=== PATIENT | female | born 1970 | race Caucasian/White ===

== ENCOUNTER → 2016-06-28 | Outpatient (CLI) | payer BC ==
[~2016-06-28] MED LIST: IBUP-1050 PO; IRON PO; MULT-506 PO; OXYC-57 PO
--- NOTE | 2016-06-28 10:42 | DIAGNOSTIC IMAGING REPORT ---
ULTRASOUND LEFT VENOUS DOPP LOWER EXT UNILAT CLINICAL HISTORY: Progressive left popliteal pain. COMPARISON STUDY: No previous studies for comparison. FINDINGS: Real-time and color flow Doppler imaging were performed. Flow was seen within the femoral, popliteal and calf veins with no intraluminal thrombus demonstrated. The saphenous vein is patent. No popliteal cyst is visualized. IMPRESSION: No evidence of left lower extremity DVT. Electronically signed by: Mike Frias M.D. 06/28/2016 10:41 AM Dictated Date/Time: 06/28/2016 10:40 AM
== END | disposition home or self-care (01) ==
LOC: C.ULTR 09:54
PROVIDERS: ATTEND Family Medicine
DX: M79.609 Pain in unspecified limb (principal)

== ENCOUNTER → 2016-08-01 | Outpatient (CLI) | payer BC | END | disposition home or self-care (01) | LOC: C.PAPS 10:43 | PROVIDERS: ATTEND Obstetrics & Gynecology | DX: Z01.419 Encounter for gynecological examination (general) (routine) without abnormal findings (principal) ==

== ENCOUNTER → 2016-09-02 | Outpatient (CLI) | payer BC | END | disposition home or self-care (01) | LOC: C.PATHSPEC 14:51 | PROVIDERS: ATTEND Obstetrics & Gynecology | DX: N92.0 Excessive and frequent menstruation with regular cycle (principal) ==

== ENCOUNTER → 2016-09-08 | Outpatient (CLI) | payer BC ==
--- NOTE | 2016-09-08 16:06 | MAMMOGRAPHY REPORT ---
BILATERAL DIGITAL SCREENING MAMMOGRAM TOMOSYNTHESIS WITH CAD: 09/08/2016 CLINICAL HISTORY: Routine screening. Patient has no complaints. TECHNIQUE: Breast tomosynthesis in addition to standard 2D mammography was performed. Current study was also evaluated with a Computer Aided Detection (CAD) system. COMPARISON: Comparison is made to exams dated: 09/07/2015 mammogram, 07/14/2014 mammogram, 07/08/2013 ma mmogram, 04/23/2012 mammogram, 04/30/2012 ultrasound, and 04/30/2012 mammogram - [facility]. BREAST COMPOSITION: There are scattered areas of fibroglandular density in both breasts. FINDINGS: There are stable lymph nodes in the upper outer posterior right breast. No suspicious mas s, architectural distortion or cluster of microcalcifications is seen. IMPRESSION: ACR BI-RADS CATEGORY 1: NEGATIVE There is no mammographic evidence of malignancy. A 1 year screening mammogram is recommended. The p atient will receive written notification of the results. Approximately 10% of breast cancers are not detected with mammography. A negative mammographic repor t should not delay biopsy if a clinically suggestive mass is present. Mame Duque M.D. ay/:09/08/2016 15:33:43 Offender Job Retention Specialist: Georgina CONNOLLY(Brenda)(Vinnie), [facility] letter sent: Normal 1/2 BI-RADS Code: ACR BI-RADS Category 1: Negative
== END | disposition home or self-care (01) ==
LOC: C.MAMM 11:47
PROVIDERS: ATTEND Physician Assistant
DX: Z12.31 Encounter for screening mammogram for malignant neoplasm of breast (principal)

== ENCOUNTER 2016-09-15 05:22 | Observation (INO) | payer BC ==
[2016-09-02 11:54] VITALS: BMI 35.0
--- NOTE | 2016-09-02 12:17 | PAT Medication Instructions ---
Service Date September 02, 2016. Current Home Medication List Ibuprofen (Advil), 400 MG PO PRN Multivitamin (Multivitamin), 1 TAB PO QAM [Iron], 65 MG PO QAM Medication Instructions For Your Scheduled Surgery - Hold the following medications the morning of surgery: Multivitamin (Multivitamin), 1 TAB PO QAM Iron 65 MG PO QAM Ibuprofen (Advil), 400 MG PO PRN (not told to stop by surgeon- use in moderation one week prior to surgery- patient usually takes only once a week) If you have any questions please call us at [phone] or [phone] ( [place]) or [phone]
[2016-09-02 13:09] LABS: BASO % 0.5 %; BASO ABS # 0.03 K/uL (0-0.2); COMPLETE YES; EOS % 1.7 %; HEMATOCRIT 40.8 % (37-47); IG% 0.2 %; LYMPH ABS # 3.07 K/uL (1.2-3.4); MEAN CELL VOLUME 87.7 fL (80-100); MEAN CORPUSCULAR HGB CONC 33.1 g/dl (32-36); MEAN PLATELET VOLUME 9.2 fL (7.4-10.4); MONO % 6.7 %; NEUT % 42.9 %; PLATELET COUNT 344 K/uL (130-400); RED BLOOD COUNT 4.65 M/uL (4.2-5.4); WHITE BLOOD COUNT 6.39 K/uL (4.8-10.8)
[2016-09-02 15:05] LABS: BUN/CREATININE RATIO 15.1 (10-20); CREATININE 0.78 mg/dl (0.60-1.20); POTASSIUM 3.7 mmol/L (3.5-5.1)
[2016-09-15] VITALS (8 sets, daily range): BP systolic 101–140; BP diastolic 56–73; PULSE 72–88; TEMP 36.5–36.9; O2SAT 94–99; Ht 157.5 cm; Wt 87.9 kg
[~2016-09-15] VITALS: Ht 157.5 cm; Wt 87.9 kg
[~2016-09-15 05:22] MED LIST changes: -OXYC-57 PO
[2016-09-15] MEDS ORDERED: LACTATED RINGER'S 1000ML 1,000 ML IV SCH ×2 (06:00)
[2016-09-15] MEDS ORDERED: CEFAZOLIN 2000 MG/60 ML D5W 50 ML IV SCH (06:00)
[2016-09-15] MEDS ORDERED: BUPIVACAINE 0.5 % 5 MG/1 ML MPF 30ML VIAL ONE (06:59)
[2016-09-15] MEDS ORDERED: METHYLENE BLUE 0.5% 10 ML VIAL ONE (07:00)
[2016-09-15] MEDS ORDERED: ONDANSETRON INJ 2 MG/ML 2 ML VIAL ONE ×2 (07:03→08:33)
[2016-09-15] MEDS ORDERED: GLYCOPYRROLATE INJ 0.2 MG/ML VIAL ONE ×2 (07:03→08:33)
[2016-09-15] MEDS ORDERED: LIDOCAINE HCL 2% 2 ML VIAL (20MG/ML) ONE (07:03)
[2016-09-15] MEDS ORDERED: NEOSTIGMINE METHYLSULFATE 5 MG/5 ML SYR ONE (07:03)
[2016-09-15] MEDS ORDERED: DEXAMETHASONE SOD INJ 4 MG/ML VIAL ONE (07:03)
[2016-09-15] MEDS ORDERED: FENTANYL CITRATE INJ 50 MCG/1 ML 2 ML VIAL ONE (07:03)
[2016-09-15] MEDS ORDERED: PROPOFOL IV EMULSION 10 MG/ML 20 ML VIAL IV ONE (07:03)
[2016-09-15] MEDS ORDERED: MIDAZOLAM HCL 1 MG/ML 2ML VIAL ONE (07:03)
[2016-09-15] MEDS ORDERED: ROCURONIUM BROMIDE 10 MG/ML 5 ML VIAL ONE ×2 (07:03→08:33)
--- NOTE | 2016-09-15 07:14 | History & Physical Bridge Note ---
H&P Re-Evaluation Bridge Note: I have examined the patient, reviewed the History & Physical and in the interval since the performance of the History & Physical I have noted the following changes of clinical significance: No changes noted
[2016-09-15] MEDS ORDERED: ONDANSETRON INJ 2 MG/ML 2 ML VIAL IV PRN ×2 (08:00→11:00)
[2016-09-15] MEDS ORDERED: EpHEDrine SULFATE INJ 50 MG/ML AMP IV PRN (08:00)
[2016-09-15] MEDS ORDERED: ATROPINE SULFATE 0.1 MG/ML 5ML SYR IV PRN (08:00)
[2016-09-15] MEDS ORDERED: HYDROmorphone INJ 2 MG/ML SYR/VIAL ONE (08:33)
[2016-09-15] MEDS ORDERED: PHENYLEPHRINE 100MCG/ML 5ML SYR ONE (09:59)
[2016-09-15] MEDS ORDERED: TISSEEL FIBRIN SEALANT 4ML TOP ONE (09:59)
--- NOTE | 2016-09-15 10:56 | [facility] Post Operative Brief Note ---
Immediate Operative Summary Operative Date September 15, 2016. Pre-Operative Diagnosis Dysfunctional uterine bleeding Post-Operative Diagnosis Same as preop Procedure(s) Performed Robotic-assisted laparoscopic hysterectomy, bilateral salpingectomy, lysis of adhesions, cystoscopy Surgeon Dr. Whitman Intermediate Teacher Surgeon(s) Dr. Peralta Estimated Blood Loss 75 cc Findings Normal appearing tubes, ovaries. Enlarged uterus. Adhesions peritoneum to omentum. Specimens A: uterus, cervix, bilateral fallopian tubes Drains cortez, clear blue Anesthesia general Complication(s) None Disposition Recovery Room / PACU
[2016-09-15] MEDS: FENTANYL CITRATE INJ 50 MCG/1 ML 2 ML VIAL IV PRN ×2 (10:58→11:10)
[2016-09-15] MEDS ORDERED: OXYCODONE/ACETAMINOPHEN 5-325 TAB PO PRN (11:00)
[2016-09-15] MEDS ORDERED: IBUPROFEN 600 MG TAB PO PRN (11:00)
[2016-09-15] MEDS ORDERED: PROMETHAZINE HCL INJ 12.5 MG in SODIUM CHLORIDE 0.9% 50ML 50 ML IV PRN (11:00)
[2016-09-15] MEDS ORDERED: MAGNESIUM HYDROXIDE SUSP 30 ML UDC PO PRN (11:00)
[2016-09-15] MEDS ORDERED: SIMETHICONE 80 MG CHEW PO PRN (11:00)
[2016-09-15] MEDS: OXYCODONE/ACETAMINOPHEN 5-325 TAB PO PRN ×2 (13:10→18:45)
[2016-09-15] MEDS ORDERED: OXYC-57 PO (13:44)
--- NOTE | 2016-09-15 13:45 | Discharge Instructions ---
Discharge Instructions Date of Service September 15, 2016. Admission Reason for Admission: Menorrhagia Discharge Discharge Diagnosis / Problem: s/p hysterectomy Discharge Goals Goal(s): Routine recovery after surgery Activity Recommendations Activity Limitations: per Instructions/Follow-up section . Instructions / Follow-Up Instructions / Follow-Up POST OPERATIVE: BOWEL FUNCTION/MEDICATIONS: 1. Constipation pain and discomfort are the most common complaints 5-7 days after surgery. Points 2-6 address the things that can help. 2. Chewing gum can help stimulate the gut and help improve digestion and motility. 3. Milk of Magnesia 1-2 times per day until return of bowel function. 4. Colace is a stool softener that helps. Taking this 2-3 times per day until bowel function returns to normal is highly recommended. 5. Dulcolax is a laxative that may be used if several days have passed without a bowel movement. Alternatively Miralax may be used daily instead. 6. Drink plenty of fluids as this will also reduce constipation. 7. Narcotic pain medications will be prescribed by your physician. They are safe to use and we encourage you to use them. If you are not allergic, ibuprofen will also be prescribed. Many patients will be able to transition off of the narcotic medications to ibuprofen by postoperative day 3. ACTIVITY RECOMMENDATIONS: 1. Get plenty of rest and listen to your body. If you are tired, take a nap. 2. You may shower, but do not take a tub bath until you see your doctor at the 2 week post operative visit. 3. Absolutely NO intercourse and nothing in the vagina until you are examined by your doctor at the 6 week visit. At that visit it will be determined when such activities can be resumed. This can range from 6-12 weeks after your surgery depending on healing time. 4. The main physical activity in the first week should be walking. By the second week you can slowly increase activity. There are no limits on walking up and down stairs. 5. Do not lift more than 5-10 lbs for 4 weeks. Remember the "one-handed rule", i.e. if you can lift something with only one hand it's likely okay. 6. Minimize printing press operator apprentice like vacuuming and exercising for 4 weeks. "Overdoing it" can lead to incisions not healing, pain and vaginal bleeding , so again, listen to your body. 7. Driving can be resumed when you feel able. Do not drive within 24 hours of taking a narcotic medication. EXPECTATIONS: 1. Vaginal spotting, bleeding and discharge are common after surgery. There may even be an odor to the discharge which is often related to sutures used in the vagina. If you experience heavy vaginal bleeding, call the office number day or night [phone]. 2. Bladder discomfort is common after surgery from the catheter. This usually resolves in 1-2 weeks. 3. By the end of the 3rd or 4th week you should be feeling much better. It may take up to 6 weeks for your energy levels to return to normal. 4. Narcotic medications have side effects such as: dizziness, headache, nausea and/or vomiting. If you suspect your pain medication is causing problems, call our office and we may be able to prescribe an alternate medication. 5. The skin incisions are often covered with a liquid bandage. This will gradually peel off over time. CALL THE OFFICE IF YOU HAVE ANY OF THE FOLLOWIN. Temperature of 101 degrees or higher. 2. Severe abdominal or pelvic pain not relieved by pain medication. 3. Persistent nausea or vomiting. 4. Increased pain with urination or difficulty urinating. 5. Bright red bleeding that soaks more than 1 pad per hour. CONTACT PHONE NUMBERS: Main Office: [phone] Surgical Nurse: [phone] extension [phone] Avoid all tobacco products. If you need help to stop smoking, call [place]'s FREE QUITLINE at . This is a free call. Current Hospital Diet Patient's current hospital diet: Discharge Diet Recommended Diet: Regular Diet Procedures Procedures Performed: Robotic-assisted laparoscopic hysterectomy, bilateral salpingectomy, lysis of adhesions, cystoscopy Pending Studies Studies pending at discharge: no Medical Emergencies . Who to Call and When: Medical Emergencies: If at any time you feel your situation is an emergency, please call 911 immediately. . Non-Emergent Contact Non-Emergency issues call your: Primary Care Provider, Machinist Job Setter . . "Provider Documentation" section prepared by Margot Whitman. . VTE Core Measure Inpt VTE Proph given/why not?: Treatment not indicated
[2016-09-15] MEDS ORDERED: IV FLUIDS COMPLETED PRN (14:00)
--- NOTE | 2016-09-15 15:09 | OPERATIVE REPORT ---
DATE OF OPERATION: 09/15/2016 PREOPERATIVE DIAGNOSIS: Dysfunctional uterine bleeding. POSTOPERATIVE DIAGNOSIS: Same. PROCEDURES PERFORMED: 1. Robotic-assisted laparoscopic hysterectomy. 2. Bilateral salpingectomy. 3. Lysis of adhesions. 4. Cystoscopy. SURGEON: Dr. Margot Whitman. COVERAGE SPECIALIST RN: Dr. Peralta. ESTIMATED BLOOD LOSS: 75 mL. FINDINGS: Normal appearing tubes and ovaries, enlarged uterus, and adhesions peritoneum to omentum. SPECIMENS: Uterus and cervix and bilateral fallopian tubes. DRAINS: Alexis clear blue due to methylene blue administration. ANESTHESIA: General. COMPLICATIONS: None. DISPOSITION: Stable and good to recovery room. INDICATIONS FOR SURGERY: The patient is a 46-year-old G3, P3 with a longstanding history of heavy menses. D\T\C hysteroscopy showed benign pathology. The patient has attempted hormonal treatment methods and this did not help. She is not agreeable to ablation given that her mother of uterine cancer at age 45 and the patient is reluctant to try this option. The bleeding is interfering with her daily activities. Bilateral ureters were visualized and peristalsing at the beginning of the case. DESCRIPTION OF PROCEDURE: The patient was seen in the preoperative holding area, where risks, benefits, and alternatives to surgery were reviewed. She elected to proceed with surgery. The patient was then taken to the operating room, where general anesthesia was introduced. She was placed in the dorsal lithotomy position with feet in Yellofin stirrups and prepared and draped in the usual sterile fashion. A timeout was called and confirmed. A Alexis catheter was placed with clear yellow urine. The weighted speculum was placed in the vagina. Cervix was visualized and a large nabothian cyst noted on the anterior lip of the cervix that had previously been noted in the office. This was punctured with a hemostat and drained. Stay sutures were placed at 3 and 9 o'clock on the cervix. The uterus was sounded and the VCare manipulator was placed without difficulty. This was tied in place with the stay sutures and gloves and gown were changed and attention was then turned to the abdomen, where using the open Amirah technique, the supraumbilical incision was created with a scalpel and carried through to the inner layer of peritoneum. The trocar was placed. The camera was placed to ensure intracavitary placement and gas was turned on high flow. The patient was placed in steep Trendelenburg position and bowel was swept out of the way by gravity. Additional incisions were made for robotic arms #1, #2, and #3 as well as an press operator assistant port. These were all placed under direct visualization. The robot was then docked in standard fashion over the patient's right leg and all instruments were inserted without difficulty. Attention was first turned to the omental peritoneal adhesions and these were taken down with monopolar scissors and excellent hemostasis was observed. Attention was then turned to the pelvis, where first the left salpingectomy was performed. The left fallopian tube was grasped and using monopolar scissors, the mesosalpinx was incised. Excellent hemostasis was noted throughout. This tube was then removed through the press operator assistant port. The uteroovarian ligament was then coagulated and transected as well as the round ligament and the broad ligament was transected down to the level of the bladder flap. The anterior leaf of the broad ligament was then dissected to create a bladder flap. In a similar fashion, the right fallopian tube was removed and the right uteroovarian ligament was coagulated and transected as was the right round ligament and the right broad ligament was skeletonized as well as the bladder flap was continued across the anterior aspect of the uterus. The bladder was carefully dissected down beyond the location of the vaginal cuff. The uterine vessels were coagulated on bilateral sides and transected. Then, the vaginal cuff was entered from the anterior aspect of the uterus with monopolar scissors and this incision was carried around in a circumferential fashion to transect the uterus from the vaginal cuff. There was left arterial bleeding at this time and multiple attempts were made using cautery to coagulate this vessel. It was eventually grasped with the [place] PK dissector and a plastic clip was applied and this achieved excellent hemostasis. The uterus was then delivered through the vagina. The cuff was irrigated. Excellent hemostasis was observed. The vaginal cuff was reapproximated using 0 V-Loc suture in a running stitch. Again, the pelvis was irrigated and excellent hemostasis was noted. Tisseel was used along the vaginal cuff and all raw edges. The cystoscopy was then performed and the bladder appeared atraumatic. Dome of the bladder was visualized and appeared normal. Bilateral urine jets were noted with the aid of methylene blue. A low pressure test was then performed to ensure excellent hemostasis. All instruments were removed from the abdomen and pelvis and the robot was undocked. All trocar sites were reapproximated first with the fascial incision and the infraumbilical incision was reapproximated using 0 Vicryl. This was followed by reapproximation of the press operator assistant port fascial incision followed by 4-0 Vicryl in a subcuticular fashion to reapproximate the skin edges. Dermabond was applied. The patient tolerated the procedure well and was taken to recovery room in stable and good condition. I attest to the content of the Intraoperative Record and any orders documented therein. Any exceptions are noted below. RAMOND
--- NOTE | 2016-09-15 16:34 | Anesthesiology Progress Note ---
Anesthesia Post Op Note Date & Time September 15, 2016 at 16:34 Vital Signs Pain Intensity: 4 Vital Signs Past 12 Hours Date Time Temp Pulse Resp B/P Pulse Ox O2 Delivery O2 Flow Rate FiO2 09/15/16 15:30 94 Room Air 09/15/16 15:30 36.9 84 18 101/56 94 Room Air 09/15/16 14:30 36.6 88 20 117/66 99 Room Air 09/15/16 13:35 36.6 72 20 106/61 99 Nasal Cannula 2.0 09/15/16 12:35 36.6 76 20 106/58 97 Nasal Cannula 4.0 09/15/16 12:05 36.5 72 16 107/60 97 Nasal Cannula 4.0 09/15/16 11:35 36.8 80 16 108/60 97 Nasal Cannula 4.0 09/15/16 11:35 97 Nasal Cannula 4.0 09/15/16 11:35 97 Nasal Cannula 4.0 09/15/16 11:23 65 16 09/15/16 11:23 66 16 95 09/15/16 11:21 115/59 09/15/16 11:19 36.6 09/15/16 11:18 70 16 94 09/15/16 11:18 70 16 09/15/16 11:16 99/61 09/15/16 11:13 63 13 94 09/15/16 11:13 63 13 09/15/16 11:12 64 16 09/15/16 11:12 64 16 94 09/15/16 11:11 110/60 09/15/16 11:07 67 14 09/15/16 11:07 69 14 93 09/15/16 11:06 94/64 09/15/16 11:02 65 16 94 09/15/16 11:02 65 16 09/15/16 11:01 99/60 09/15/16 11:00 59 14 09/15/16 11:00 58 14 93 09/15/16 10:56 102/61 09/15/16 10:55 69 16 94 09/15/16 10:55 70 16 09/15/16 10:51 102/61 09/15/16 10:50 62 15 94 09/15/16 10:50 62 15 09/15/16 10:46 108/63 09/15/16 10:45 77 20 09/15/16 10:45 77 20 90 09/15/16 10:41 123/81 09/15/16 10:40 70 17 09/15/16 10:40 69 17 95 09/15/16 10:36 101/66 09/15/16 10:35 74 13 09/15/16 10:35 74 13 96 09/15/16 10:30 79 22 09/15/16 10:30 36.6 69 16 96/60 95 Mask 10 09/15/16 10:30 85 22 96/60 09/15/16 05:35 36.7 74 16 140/73 97 Room Air Notes Mental Status: alert / awake / arousable, participated in evaluation Pt Amnestic to Procedure: Yes Nausea / Vomiting: adequately controlled Pain: adequately controlled Airway Patency, RR, SpO2: stable & adequate BP & HR: stable & adequate Hydration State: stable & adequate Anesthetic Complications: no major complications apparent
[2016-09-15] MEDS ORDERED: DOCUSATE SODIUM 100 MG CAP PO SCH (21:00)
--- NOTE | 2016-09-25 08:35 | DISCHARGE SUMMARY ---
PREOPERATIVE DIAGNOSIS: Dysfunctional uterine bleeding. POSTOPERATIVE DIAGNOSES: Same. PROCEDURES PERFORMED: Robotic assisted laparoscopic hysterectomy, bilateral salpingectomy, lysis of adhesions and cystoscopy. COURSE OF STAY: The patient was admitted following the above noted procedures and was discharged to home the same day in stable and good condition. MEDICATIONS: Percocet and Motrin. FOLLOWUP: 2 weeks in the office. CONDITION ON DISCHARGE: Stable and good. INFECTIONS: None. DIET: Regular. ACTIVITY: Pelvic rest, no heavy lifting.
== END 2016-09-15 18:50 | disposition home or self-care (01) ==
LOC: C.ACU 05:22 → C.MS4N 05:33
PROVIDERS: ADMIT Obstetrics & Gynecology; ATTEND Obstetrics & Gynecology
DX: N93.8 Other specified abnormal uterine and vaginal bleeding (principal); Z82.49 Family history of ischemic heart disease and other diseases of the circulatory system; Z80.49 Family history of malignant neoplasm of other genital organs; Z80.0 Family history of malignant neoplasm of digestive organs
CPT/HCPCS: 58571; S2900

== ENCOUNTER 2017-08-13 10:10 | Emergency (ER) | payer BC ==
[~2017-08-13] VITALS: Ht 157.5 cm; Wt 75.8 kg
[~2017-08-13 10:10] MED LIST changes: +OXYC-57 PO
[2017-08-13 10:12] VITALS: TEMP 36.5; Ht 157.5 cm; Wt 75.8 kg
[2017-08-13] MEDS ORDERED: MAGNESIUM SULFATE 1GM / D5W 1 GM BAG IV STA (10:48)
[2017-08-13] MEDS ORDERED: DiphenhydrAMINE HCL 50 MG/ML VIAL IV STA (10:48)
[2017-08-13] MEDS ORDERED: KETOROLAC TROMETHAMINE 30 MG/ML VIAL IV STA (10:48)
[2017-08-13] MEDS ORDERED: PROCHLORPERAZINE 5 MG/ML 2 ML VIAL IV STA (10:48)
[2017-08-13] MEDS ORDERED: SODIUM CHLORIDE 0.9% 1000ML 1,000 ML IV STA (10:48)
[2017-08-13] MEDS ORDERED: FAMOTIDINE 20MG/5ML IV PUSH IV STA (10:53)
[2017-08-13] MEDS ORDERED: PRED10TA PO (11:02)
[2017-08-13] MEDS ORDERED: GLC/500 PO (11:02)
[2017-08-13] MEDS ORDERED: MULT-506 PO (11:02)
--- NOTE | 2017-08-13 11:15 | EMERGENCY ROOM VISIT NOTE ---
History Report prepared by Alva: Cait Nieto Under the Supervision of: Dr. Bryan Ayala M.D. First contact with patient: 10:32 Chief Complaint: HEADACHE Stated Complaint: SEVERE HEAD PAIN, RASH, NAUSEA History of Present Illness The patient is a 46 year old female who presents to the Emergency Room with complaints of a worsening headache beginning last night. The patient states that her headache began gradually around 8pm and worsened throughout the night and into this morning. She did not sleep well due to her symptoms. She reports a headache on the left side of her head and rates her current pain as a 9/10 in severity. She is also complaining of neck stiffness. The patient has had a diffuse rash on her upper body for the past 3 weeks and has been following up with her PCP. Yesterday she started taking prednisone for this rash. She took 50mg of prednisone yesterday and 50mg today. The patient lives in the [facility] and has dogs at home but denies any recent tick bites. Source of History: patient Onset: last night Position: head Symptom Intensity: 9/10 Timing: worsening Modifying Factors (Worsening): other (time) Associated Symptoms: + neck pain, + rash Review of Systems See HPI for pertinent positives & negatives. A total of 10 systems reviewed and were otherwise negative. Past Medical & Surgical Medical Problems: (1) Heavy menses Family History Cancer Social History Smoking Status: Never Smoker Marital Status: Housing Status: lives with family Occupation Status: employed Current/Historical Medications Scheduled Metformin Hcl (Glucophage), 500 MG PO DAILY Multivitamin (Multivitamin), 1 TAB PO DAILY Prednisone Tab (Prednisone), 10 MG PO UD Ranitidine Hcl (Zantac), 150 MG PO BID Allergies Coded Allergies: Codeine (Verified Allergy, Severe, CHEST TIGHTNESS--USES PERCOCET AT HOME , 08/13/17) Morphine (Verified Allergy, Unknown, CHEST TIGHTNESS--USES PERCOCET AT HOME, 08/13/17) Physical Exam Vital Signs Date Time Temp Pulse Resp B/P (MAP) Pulse Ox O2 Delivery O2 Flow Rate FiO2 08/13/17 12:22 76 18 110/78 97 08/13/17 11:53 78 18 116/76 95 Room Air 08/13/17 11:11 71 08/13/17 11:08 72 18 126/77 99 Room Air 08/13/17 10:12 36.5 70 17 142/84 97 Room Air Physical Exam GENERAL: Awake, alert, well-appearing, in no acute distress HENT: Normocephalic, atraumatic. Oropharynx unremarkable. EYES: Normal conjunctiva. Sclera non-icteric. NECK: Supple. No nuchal rigidity. FROM. No JVD. No evidence of meningitis or encephalitis on exam. RESPIRATORY: Clear to auscultation. CARDIAC: Regular rate, normal rhythm. Extremities warm and well perfused. Pulses equal. ABDOMEN: Soft, non-distended. No tenderness to palpation. No rebound or guarding. No masses. RECTAL: Deferred. MUSCULOSKELETAL: Chest examination reveals no tenderness. The back is symmetrical on inspection without obvious abnormality. There is no CVA tenderness to palpation. No joint edema. LOWER EXTREMITIES: Calves are equal size bilaterally and non-tender. No edema. No discoloration. NEURO: Normal sensorium. No sensory or motor deficits noted. SKIN: Very fine urticarial-like rash to the top of her trunk. Medical Decision & Procedures ER Provider Diagnostic Interpretation: Radiology results as stated below per my review and radiologist interpretation: CT SCAN OF THE BRAIN WITHOUT IV CONTRAST CLINICAL HISTORY: Headache. COMPARISON STUDY: No priors. TECHNIQUE: Unenhanced axial CT scan of the brain is performed from the vertex to the skull base. A dose lowering technique was utilized adhering to the principles of ALARA. CT DOSE: 537.48 mGy.cm FINDINGS: Brain parenchyma: The brain parenchyma is normal in appearance. There is no hemorrhage, mass effect, or evidence of acute territorial ischemia by CT criteria. Madrigal-white matter is preserved. No extra-axial fluid collection is seen. Ventricles, sulci, cisterns: Normal in configuration. Intracranial vasculature: The visualized intracranial vasculature at the skull base is normal in appearance. Calvarium: Unremarkable. Sinuses and mastoids: The visualized paranasal sinuses are clear. The mastoid air cells are well pneumatized. Orbits: The bony orbits are grossly intact. IMPRESSION: No acute intracranial abnormality. Electronically signed by: Igor Martinez M.D. 08/13/2017 11:30 AM Dictated Date/Time: 08/13/2017 11:28 AM Laboratory Results 08/13/17 10:55 Red Blood Count 4.71, Mean Corpuscular Volume 88.5, Mean Corpuscular Hemoglobin 30.6, Mean Corpuscular Hemoglobin Concent 34.5, Mean Platelet Volume 9.3, Neutrophils (%) (Auto) 74.0, Lymphocytes (%) (Auto) 19.7, Monocytes (%) (Auto) 5.2, Eosinophils (%) (Auto) 0.6, Basophils (%) (Auto) 0.2, Neutrophils # (Auto) 8.42, Lymphocytes # (Auto) 2.24, Monocytes # (Auto) 0.59, Eosinophils # (Auto) 0.07, Basophils # (Auto) 0.02 08/13/17 10:55 Test 08/13/17 10:55 08/13/17 11:10 White Blood Count 11.37 K/uL (4.8-10.8) Red Blood Count 4.71 M/uL (4.2-5.4) Hemoglobin 14.4 g/dL (12.0-16.0) Hematocrit 41.7 % (37-47) Mean Corpuscular Volume 88.5 fL (80-100) Mean Corpuscular Hemoglobin 30.6 pg (25-34) Mean Corpuscular Hemoglobin Concent 34.5 g/dl (32-36) Platelet Count 284 K/uL (130-400) Mean Platelet Volume 9.3 fL (7.4-10.4) Neutrophils (%) (Auto) 74.0 % Lymphocytes (%) (Auto) 19.7 % Monocytes (%) (Auto) 5.2 % Eosinophils (%) (Auto) 0.6 % Basophils (%) (Auto) 0.2 % Neutrophils # (Auto) 8.42 K/uL (1.4-6.5) Lymphocytes # (Auto) 2.24 K/uL (1.2-3.4) Monocytes # (Auto) 0.59 K/uL (0.11-0.59) Eosinophils # (Auto) 0.07 K/uL (0-0.5) Basophils # (Auto) 0.02 K/uL (0-0.2) RDW Standard Deviation 38.5 fL (36.4-46.3) RDW Coefficient of Variation 11.9 % (11.5-14.5) Immature Granulocyte % (Auto) 0.3 % Immature Granulocyte # (Auto) 0.03 K/uL (0.00-0.02) Anion Gap 6.0 mmol/L (3-11) Est Creatinine Clear Calc Drug Dose 96.8 ml/min Estimated GFR () 121.3 Estimated GFR (Non- 104.6 BUN/Creatinine Ratio 18.1 (10-20) Calcium Level 9.0 mg/dl (8.5-10.1) Total Bilirubin 0.4 mg/dl (0.2-1) Direct Bilirubin 0.1 mg/dl (0-0.2) Aspartate Amino Transf (AST/SGOT) 15 U/L (15-37) Alanine Aminotransferase (ALT/SGPT) 25 U/L (12-78) Alkaline Phosphatase 77 U/L (45-117) Total Protein 7.5 gm/dl (6.4-8.2) Albumin 3.8 gm/dl (3.4-5.0) Lipase 113 U/L (73-393) Lyme Disease IgG Antibody NEG (NEG) Lyme Disease IgM Antibody NEG (NEG) Urine Color DK YELLOW Urine Appearance CLOUDY (CLEAR) Urine pH 5.0 (4.5-7.5) Urine Specific [place] 1.035 (1.000-1.030) Urine Protein NEG (NEG) Urine Glucose (UA) NEG (NEG) Urine Ketones TRACE (NEG) Urine Occult Blood NEG (NEG) Urine Nitrite NEG (NEG) Urine Bilirubin NEG (NEG) Urine Urobilinogen NEG (NEG) Urine Leukocyte Esterase NEG (NEG) Urine WBC (Auto) 1-5 /hpf (0-5) Urine RBC (Auto) 0-4 /hpf (0-4) Urine Hyaline Casts (Auto) 1-5 /lpf (0-5) Urine Epithelial Cells (Auto) >30 /lpf (0-5) Urine Bacteria (Auto) NEG (NEG) Urine Crystals CALCIUM OXALATE (NONE Labs reviewed by ED physician. Medications Administered Medications (Trade) Dose Ordered Sig/Andrei Route Start Time Stop Time Status Last Admin Dose Admin Sodium Chloride 1,000 ml @ 999 mls/hr Q1H1M STAT IV 08/13/17 10:48 08/13/17 11:48 DC 08/13/17 11:03 999 MLS/HR Ketorolac Tromethamine (Toradol Inj) 30 mg NOW STAT IV 08/13/17 10:48 08/13/17 10:51 DC 08/13/17 11:03 30 MG Prochlorperazine Edisylate (Compazine Inj) 10 mg NOW STAT IV 08/13/17 10:48 08/13/17 10:51 DC 08/13/17 11:04 10 MG Diphenhydramine HCl (Benadryl Inj) 50 mg NOW STAT IV 08/13/17 10:48 08/13/17 10:51 DC 08/13/17 11:04 50 MG Magnesium Sulfate (Magnesium Sulfate) 1 gm NOW STAT IV 08/13/17 10:48 08/13/17 10:51 DC 08/13/17 11:03 1 GM Famotidine (Pepcid 20mg Iv Push) 20 mg ONE STAT IV 08/13/17 10:53 08/13/17 10:54 DC 08/13/17 11:04 20 MG ED Course 1040: Past medical records reviewed. The patient was evaluated in room B2. A complete history and physical examination was performed. 1048: Magnesium Sulfate 1 gm IV, Benadryl 50 mg IV, Compazine 10 mg IV, Toradol 30 mg IV, NSS 1000 ml @ 999 mls/hr IV 1053: Famotidine 20 mg IV 1139: I offered a lumbar puncture at this time but the patient declined. 1207: I reassessed the patient at this time. She is feeling better and resting comfortably. I discussed the results and treatment plan with the patient. I answered all pertaining questions that she had. She expressed understanding and verbalized agreement. The patient will be discharged home. Medical Decision Differential diagnosis: Etiologies such as migraine headache, meningitis, sinusitis, CO exposure, ICH, SAH, infection, tumor, headache, sinus thrombosis, arterial dissection, as well as others were entertained. This is a 46-year-old female who presents the emergency department complaining of headache. The patient has no evidence of meningitis or encephalitis on examination and is afebrile. She does have an elevation in her white blood cell count however I feel this is from taking prednisone. Regardless I gave the patient the option of having a lumbar puncture performed and using shared medical decision making based on her presentation as well as a CAT scan of the head her vital signs her laboratory work we made the decision not to perform an LP. In addition the patient is also feeling much better after receiving Toradol magnesium normal saline bolus and Compazine. She was also given Zantac for her rash. I strongly recommended the patient follow-up with her primary care physician or to return to the emergency department if she develops severe head and neck pain for an LP. Patient was in agreement with the treatment plan. Medication Reconcilliation Current Medication List: was personally reviewed by me Blood Pressure Screening Patient's blood pressure: Normal blood pressure Impression Primary Impression: Headache Scribe Attestation The scribe's documentation has been prepared under my direction and personally reviewed by me in its entirety. I confirm that the note above accurately reflects all work, treatment, procedures, and medical decision making performed by me. Departure Information Dispostion Home / Self-Care Prescriptions Ranitidine Hcl (ZANTAC) 150 Mg Tab 150 MG PO BID for 7 Days, #14 TAB Prov: Bryan Ayala MD 08/13/17 Referrals Elizabeth Kraus (PCP) Forms HOME CARE DOCUMENTATION FORM, IMPORTANT VISIT INFORMATION Patient Instructions Headache Pain, My [facility], [facility] Additional Instructions Take Benadryl 50 mg every 6 hours as needed Increase fluids over next 48 hours You have been examined and treated today on an emergency basis only. This is not a substitute for, or an effort to provide, complete comprehensive medical care. It is impossible to recognize and treat all injuries or illnesses in a single emergency department visit. It is therefore important that you follow up closely with Dr Kraus. Call as soon as possible for an appointment. Thank you for your time and consideration. I look forward to speaking with you again soon. Please don't hesitate to call us if you have any questions. Problem Qualifiers Primary Impression: Headache Headache type: unspecified Headache chronicity pattern: unspecified pattern Intractability: not intractable Qualified Codes: R51 - Headache
[2017-08-13 11:23] LABS: BASO % 0.2 %; BASO ABS # 0.02 K/uL (0-0.2); EOS % 0.6 %; EOS ABS # 0.07 K/uL (0-0.5); HEMATOCRIT 41.7 % (37-47); HEMOGLOBIN 14.4 g/dL (12.0-16.0); IG# 0.03 K/uL (0.00-0.02); LYMPH % 19.7 %; LYMPH ABS # 2.24 K/uL (1.2-3.4); MEAN CELL VOLUME 88.5 fL (80-100); MEAN CORPUSCULAR HEMOGLOBIN 30.6 pg (25-34); MEAN CORPUSCULAR HGB CONC 34.5 g/dl (32-36); MEAN PLATELET VOLUME 9.3 fL (7.4-10.4); MONO % 5.2 %; MONO ABS # 0.59 K/uL (0.11-0.59); NEUT ABS # 8.42 K/uL (1.4-6.5); PLATELET COUNT 284 K/uL (130-400); RED CELL DISTRIBUTION WIDTH CV 11.9 % (11.5-14.5); RED CELL DISTRIBUTION WIDTH SD 38.5 fL (36.4-46.3); WHITE BLOOD COUNT 11.37 K/uL (4.8-10.8)
--- NOTE | 2017-08-13 11:32 | DIAGNOSTIC IMAGING REPORT ---
CT SCAN OF THE BRAIN WITHOUT IV CONTRAST CLINICAL HISTORY: Headache. COMPARISON STUDY: No priors. TECHNIQUE: Unenhanced axial CT scan of the brain is performed from the vertex to the skull base. A dose lowering technique was utilized adhering to the principles of ALARA. CT DOSE: 537.48 mGy.cm FINDINGS: Brain parenchyma: The brain parenchyma is normal in appearance. There is no hemorrhage, mass effect, or evidence of acute territorial ischemia by CT criteria. Madrigal-white matter is preserved. No extra-axial fluid collection is seen. Ventricles, sulci, cisterns: Normal in configuration. Intracranial vasculature: The visualized intracranial vasculature at the skull base is normal in appearance. Calvarium: Unremarkable. Sinuses and mastoids: The visualized paranasal sinuses are clear. The mastoid air cells are well pneumatized. Orbits: The bony orbits are grossly intact. IMPRESSION: No acute intracranial abnormality. Electronically signed by: Igor Martinez M.D. 08/13/2017 11:30 AM Dictated Date/Time: 08/13/2017 11:28 AM
[2017-08-13 11:33] LABS: ALBUMIN 3.8 gm/dl (3.4-5.0); CREATININE 0.7 mg/dl (0.60-1.20); POTASSIUM 3.5 mmol/L (3.5-5.1)
[2017-08-13 11:36] LABS: TOTAL PROTEIN 7.5 gm/dl (6.4-8.2)
[2017-08-13] MEDS ORDERED: RANI150T3 PO (12:09)
[2017-08-13 12:22] VITALS: BP 110/78; PULSE 76; O2SAT 97
== END 2017-08-13 12:23 | disposition home or self-care (01) ==
LOC: C.EDB 10:13
DX: R51 Headache (principal); R21 Rash and other nonspecific skin eruption; Z88.6 Allergy status to analgesic agent

== ENCOUNTER → 2017-09-09 | Outpatient (CLI) | payer BC ==
[~2017-09-09] MED LIST changes: +GLC/500 PO; -IBUP-1050 PO; -IRON PO; -OXYC-57 PO; +PRED10TA PO
--- NOTE | 2017-09-09 15:07 | MAMMOGRAPHY REPORT ---
BILATERAL DIGITAL SCREENING MAMMOGRAM TOMOSYNTHESIS WITH CAD: 09/09/2017 CLINICAL HISTORY: Routine screening. Patient has no complaints. TECHNIQUE: Breast tomosynthesis in addition to standard 2D mammography was performed. Current study was also evaluated with a Computer Aided Detection (CAD) system. COMPARISON: Comparison is made to exams dated: 09/08/2016 mammogram, 09/07/2015 mammogram, 07/14/2014 [facility] mogram, 07/08/2013 mammogram, 04/30/2012 ultrasound, and 04/30/2012 mammogram - [facility] enter. BREAST COMPOSITION: There are scattered areas of fibroglandular density in both breasts. FINDINGS: The parenchymal pattern is unchanged. No developing mass, architectural distortion or clus ter of suspicious microcalcifications is seen in either breast. IMPRESSION: ACR BI-RADS CATEGORY 2: BENIGN There is no mammographic evidence of malignancy. A 1 year screening mammogram is recommended. The pa tient will receive written notification of the results. Approximately 10% of breast cancers are not detected with mammography. A negative mammographic report should not delay biopsy if a clinically suggestive mass is present. Mame Duque M.D. ay/:09/09/2017 13:48:44 Electronics Hardware Design Engineer: Awa CONNOLLY(Brenda)(Vinnie), [facility] letter sent: Normal 1/2 BI-RADS Code: ACR BI-RADS Category 2: Benign
== END | disposition home or self-care (01) ==
LOC: C.MAMM 11:18
PROVIDERS: ATTEND Physician Assistant
DX: Z12.31 Encounter for screening mammogram for malignant neoplasm of breast (principal)